=== PATIENT | female | born 1950 | race Caucasian/White ===

== ENCOUNTER 2017-08-24 22:23 | Emergency (ER) | payer OTHER, BC ==
[2017-08-24 22:27] VITALS: BP 162/92; PULSE 106; TEMP 97.7; BMI 30.1
--- NOTE | 2017-08-24 22:32 | PDOC ---
History of Present Illness - General Chief Complaint: Laceration Stated Complaint: LAC LT FOOT Time Seen by Provider: 08/24/17 22:31 History Source: Patient Exam Limitations: No Limitations - History of Present Illness Initial Comments: 08/24/17 22:38 This is a 67-year-old female who dropped a knife on her foot resulting in a superficial laceration of the second and third toes of her left foot. By the time patient got to the emergency room the bleeding had stopped. Patient's last tetanus was approximately 6 years ago. Patient aches a baby aspirin otherwise denies any significant medical problems. PAST MEDICAL HISTORY: no significant history PAST SURGICAL HISTORY: no significant history FAMILY HISTORY: no pertinant history SOCIAL HISTORY: Pt lives with family and is employed. MEDICATIONS: reviewed ALLERGIES: As per nursing notes Review of Systems General: No fevers or chills, no weakness, no weight loss HEENT: No change in vision. No sore throat,. No ear pain CardioVascular: No chest pain or shortness of breath Respiratory:No cough, or wheezing. Gastrointestinal: no nausea, vomitting, diarrhea or constipation, No rectal bleeding Genitourinary: No dysuria, hematuria, or frequency Musculoskeletal: Osteoarthritis of her left foot, laceration as per history of present illness Neurologic: No headache, vertigo, dizziness or loss of consciousness Psychiatric: nor depression Skin: No rashes or easy bruising Endocrine: no increased thirst or abnormal weight change Allergic: no skin or latex allergy All other systems reviewed and normal GENERAL: The patient is awake, alert, and fully oriented, in no acute distress. HEAD: Normal with no signs of trauma. EYES: Pupils equal, round and reactive to light, extraocular movements intact, sclera anicteric, conjunctiva clear. EXTREMITIES: Normal range of motion, no edema. Left foot there is a 1 cm superficial laceration over the dorsum of the middle phalanx of the second toe and a 1 cm slightly deeper laceration along the medial aspect of the third toe. Neurovascular distal is intact and there is no active bleeding at this time. NEUROLOGICAL: Normal speech, normal gait. PSYCH: Normal mood, normal affect. SKIN: Warm, Dry, normal turgor, no rashes or lesions noted. Procedure note Lacerations were cleaned with peroxide Lacerations were closed with Dermabond Assessment and plan: This is a 67-year-old female with 2 relatively small lacerations of her left foot that were closed with Dermabond. Patient discharged home and given Dermabond instructions. Past History - Past Medical History Allergies/Adverse Reactions: Allergies Allergy/AdvReac Type Severity Reaction Status Date / Time Penicillins Allergy Unknown Verified 09/29/14 19:36 Home Medications: Ambulatory Orders Amlodipine Besylate [Norvasc -] 5 mg PO DAILY 09/29/14 Atorvastatin Ca [Lipitor -] 10 mg PO HS 09/29/14 Metformin HCl [Glucophage -] 500 mg PO BID 09/29/14 Metoprolol Succinate [Toprol XL -] 25 mg PO DAILY 09/29/14 Diabetes: Yes HTN: Yes Hypercholesterolemia: Yes - Immunization History Td Vaccination: Yes (02/21/11) Immunization Up to Date: Yes - Suicide/Smoking/Psychosocial Hx Smoking History: Never smoked Hx Alcohol Use: Yes Substance Use Type: None *Physical Exam - Vital Signs Last Vital Signs Temp Pulse Resp BP Pulse Ox 97.7 F 106 H 16 162/92 99 08/24/17 22:25 08/24/17 22:25 08/24/17 22:25 08/24/17 22:25 08/24/17 22:25 *DC/Admit/Observation/Transfer Diagnosis at time of Disposition: Laceration of toe of left foot Qualifiers: Encounter type: initial encounter Toe: unspecified toe Damage to nail status: unspecified Foreign body presence: without foreign body Qualified Code(s): S91.119A - Laceration without foreign body of unspecified toe without damage to nail, initial encounter; S91.119A - Laceration without foreign body of unspecified toe without damage to nail, initial encounter Laceration of third toe of left foot with complication Qualifiers: Encounter type: initial encounter Qualified Code(s): S91.115A - Laceration without foreign body of left lesser toe(s) without damage to nail, initial encounter; S91.115A - Laceration without foreign body of left lesser toe(s) without damage to nail, initial encounter - Discharge Dispostion Disposition: HOME Condition at time of disposition: Stable - Patient Instructions Printed Discharge Instructions: DI for Laceration Repair With Dermabond Additional Instructions: Read over and follow Dermabond instructions. Return to the emergency department immediately with ANY new, persistent or worsening symptoms. Continue any medications as previously prescribed by your physician. You should follow up with your primary doctor as soon as possible regarding today's emergency department visit. . Please make sure your doctor reviews the results of your emergency evaluation. Thank you for coming to the Emergency Department today for your care. It was a pleasure to see you today. Please note that your evaluation is INCOMPLETE until you follow-up with your doctor.
== END 2017-08-24 22:45 | disposition home or self-care (01) ==
LOC: FER 22:23
PROC: 0HQNXZZ Repair Left Foot Skin, External Approach (ICD-10-PCS; principal; 2017-08-24)
DX: S91.119A Laceration without foreign body of unspecified toe without damage to nail, initial encounter (principal); S91.115A Laceration without foreign body of left lesser toe(s) without damage to nail, initial encounter; W26.0XXA Contact with knife, initial encounter; Y93.89 Activity, other specified; Y92.9 Unspecified place or not applicable
CPT/HCPCS: 99281-25

== ENCOUNTER 2020-09-21 13:28 | Emergency (ER) | payer OTHER, BC | END 2020-09-21 14:00 | disposition home or self-care (01) | LOC: JVIRT 13:28 | DX: Z11.59 Encounter for screening for other viral diseases (principal) | CPT/HCPCS: C9803; Q3014-GT; U0003 ==

== ENCOUNTER 2020-12-30 14:01 | Emergency (ER) | payer OTHER, BC | END 2020-12-30 16:17 | disposition home or self-care (01) | LOC: JVIRT 14:01 | DX: Z20.822 Contact with and (suspected) exposure to COVID-19 (principal) | CPT/HCPCS: C9803; G2251-GT; U0003 ==

== ENCOUNTER 2022-03-15 10:30 | Day surgery (SDC) | payer OTHER, BC ==
[2022-03-02 10:19] VITALS: BMI 26.5
[~2022-03-15 10:30] MED LIST: TROPICAMIDE 1% OPHTH SOLN 15 ML BOTTLE OS SCH
[2022-03-15] MEDS ORDERED: OFLOXACIN 0.3% OPHTHALMIC SOLUTION 5 ML BOTTLE ONE ×2 (10:36→10:46)
[2022-03-15] MEDS ORDERED: CYCLOPENTOLATE HCL 1% OPHTH SOLN 2 ML BOTTLE ONE ×2 (10:37→10:46)
[2022-03-15] MEDS ORDERED: KETOROLAC TROMETHAMINE 0.5% EYE DROP 1 DROP DROPS ONE ×2 (10:37→10:46)
[2022-03-15] MEDS ORDERED: PHENYLEPHRINE 2.5% OPHTH SOLN 15 ML BOTTLE ONE ×2 (10:37→10:46)
[2022-03-15] MEDS ORDERED: TROPICAMIDE 1% OPHTH SOLN 15 ML BOTTLE ONE (10:46)
[2022-03-15] MEDS ORDERED: BETAXOLOL HCL 0.25% OPHTHALMIC 10 ML DROPSBTL ONE (11:08)
[2022-03-15] MEDS ORDERED: NEO/POLYMYX B SULF/DEXAMETH OPHTHALMIC 5ML BOTTLE ONE (11:08)
[2022-03-15] MEDS ORDERED: ACETYLCHOLINE 1:100 INTRA-OCUL 20 MG/2 ML KIT ONE (11:08)
[2022-03-15] MEDS ORDERED: EPI-SHUGARCAINE (EPINEPHRINE 0.025% & LIDOCAINE-PF 0.75%) 4ML ONE (11:08)
[2022-03-15] MEDS ORDERED: TETRACAINE 0.5% OPHTH SOLN 2 ML BOTTLE ONE (11:08)
[2022-03-15] MEDS ORDERED: BACITRACIN/POLYMYXIN OPH OINT 3.5 GM TUBE ONE (11:08)
[2022-03-15] MEDS ORDERED: POVIDONE-IODINE 5% OPHTHALMIC PREP 30 ML SOLUTION ONE (11:08)
[2022-03-15] MEDS: OFLOXACIN 0.3% OPHTHALMIC SOLUTION 5 ML BOTTLE OS SCH ×3 (11:10→11:20)
[2022-03-15] MEDS: KETOROLAC TROMETHAMINE 0.5% EYE DROP 1 DROP DROPS OS SCH ×3 (11:10→11:20)
[2022-03-15] MEDS: TROPICAMIDE 1% OPHTH SOLN 15 ML BOTTLE ONE ×3 (11:10→11:20)
[2022-03-15] MEDS: CYCLOPENTOLATE HCL 1% OPHTH SOLN 2 ML BOTTLE OS SCH ×3 (11:10→11:20)
[2022-03-15] MEDS: PHENYLEPHRINE 2.5% OPHTH SOLN 15 ML BOTTLE OS SCH ×3 (11:10→11:20)
[2022-03-15] MEDS ORDERED: MIDAZOLAM HCL 2 MG/2 ML SINGLE DOSE VIAL ONE (11:15)
[2022-03-15] MEDS ORDERED: ACETAMINOPHEN 325 MG TABLET (FP) PO PRN (12:55)
[2022-03-15 13:16] VITALS: TEMP 98
[2022-03-15 13:25] VITALS: BP 121/71; PULSE 85
== END 2022-03-15 13:35 | disposition home or self-care (01) ==
LOC: FASU 10:30
PROVIDERS: ATTEND Ophthalmology
PROC: 08RK3JZ Replacement of Left Lens with Synthetic Substitute, Percutaneous Approach (ICD-10-PCS; principal; 2022-03-15 12:25)
DX: H25.89 Other age-related cataract (principal)
CPT/HCPCS: 66984; V2632; 82962

== ENCOUNTER 2022-03-29 09:35 | Day surgery (SDC) | payer OTHER, BC ==
[2022-03-02 10:46] VITALS: BMI 26.5
[2022-03-29] MEDS ORDERED: KETOROLAC TROMETHAMINE 0.5% EYE DROP 1 DROP DROPS ONE (09:47)
[2022-03-29] MEDS ORDERED: TROPICAMIDE 1% OPHTH SOLN 15 ML BOTTLE ONE (09:47)
[2022-03-29] MEDS ORDERED: OFLOXACIN 0.3% OPHTHALMIC SOLUTION 5 ML BOTTLE ONE (09:47)
[2022-03-29] MEDS ORDERED: CYCLOPENTOLATE HCL 1% OPHTH SOLN 2 ML BOTTLE ONE (09:47)
[2022-03-29] MEDS ORDERED: PHENYLEPHRINE 2.5% OPHTH SOLN 15 ML BOTTLE ONE (09:47)
[2022-03-29] MEDS: PHENYLEPHRINE 2.5% OPHTH SOLN 15 ML BOTTLE OD SCH ×3 (10:05→10:15)
[2022-03-29] MEDS: KETOROLAC TROMETHAMINE 0.5% EYE DROP 1 DROP DROPS OD SCH ×3 (10:05→10:15)
[2022-03-29] MEDS: OFLOXACIN 0.3% OPHTHALMIC SOLUTION 5 ML BOTTLE OD SCH ×3 (10:05→10:15)
[2022-03-29] MEDS: TROPICAMIDE 1% OPHTH SOLN 15 ML BOTTLE OD SCH ×3 (10:05→10:15)
[2022-03-29] MEDS: CYCLOPENTOLATE HCL 1% OPHTH SOLN 2 ML BOTTLE OD SCH ×3 (10:05→10:15)
[2022-03-29] MEDS ORDERED: EPI-SHUGARCAINE (EPINEPHRINE 0.025% & LIDOCAINE-PF 0.75%) 4ML ONE (10:54)
[2022-03-29] MEDS ORDERED: BETAXOLOL HCL 0.25% OPHTHALMIC 10 ML DROPSBTL ONE (10:54)
[2022-03-29] MEDS ORDERED: BACITRACIN/POLYMYXIN OPH OINT 3.5 GM TUBE ONE (10:54)
[2022-03-29] MEDS ORDERED: NEO/POLYMYX B SULF/DEXAMETH OPHTHALMIC 5ML BOTTLE ONE (10:55)
[2022-03-29] MEDS ORDERED: POVIDONE-IODINE 5% OPHTHALMIC PREP 30 ML SOLUTION ONE (10:55)
[2022-03-29] MEDS ORDERED: TETRACAINE 0.5% OPHTH SOLN 2 ML BOTTLE ONE (10:55)
[2022-03-29] MEDS ORDERED: MIDAZOLAM HCL 2 MG/2 ML SINGLE DOSE VIAL ONE (11:05)
[2022-03-29 12:01] VITALS: TEMP 96.7
[2022-03-29] MEDS ORDERED: ACETAMINOPHEN 325 MG TABLET (FP) PO PRN (12:04)
[2022-03-29 12:39] VITALS: BP 126/85; PULSE 80
== END 2022-03-29 12:30 | disposition home or self-care (01) ==
LOC: FASU 09:35
PROVIDERS: ATTEND Ophthalmology
PROC: 08RJ3JZ Replacement of Right Lens with Synthetic Substitute, Percutaneous Approach (ICD-10-PCS; principal; 2022-03-29 11:19)
DX: H25.89 Other age-related cataract (principal)
CPT/HCPCS: 66984; V2632; 82962